=== PATIENT | female | born 1970 | race Caucasian/White ===

== ENCOUNTER 2017-02-28 20:40 | Emergency (ER) | payer OTHER ==
[~2017-02-28] VITALS: Ht 162.6 cm; Wt 90.7 kg
[~2017-02-28 20:40] MED LIST: ABILIFY 5 MG TAB5 MG; AFRIN15 ML NS; ASPIRIN EC325 MG PO; BACTRIM DS TAB1 EACH PO; BACTROBAN NASAL1 GM NS; BENADRYL25 MG PO; BUSPIRONE HCL10 MG PO; CIPROFLOXACIN500 M1 PO; CLARITIN10 MG PO; CLARITIN5 MG/5 ML PO; CLEOCIN HCL300 MG PO; CLONAZEPAM 0.50.5 M1 PO; COLACE100 MG PO; CORTISPORIN OTI10 M2 OTIC; DARVOCET-N 1001 EACH PO; DEPAKOTE ER500 MG PO; DESYREL; EFFEXOR 5050 MG/1 T1 PO; EFFEXOR XR150 MG; EFFEXOR XR150 MG PO; EFFEXOR XR37.5 MG PO; EFFEXOR XR75 MG; EFFEXOR XR75 MG PO; FLAGYL500 MG PO; FLEXERIL PO; FLONASE 0.05%50 MCG NS; GABAPENTIN 100100 MG PO; GEODON20 MG PO; GLUCOPHAGE XR500 MG PO; GLUCOPHAGE1000 MG PO; GLUCOTROL5 MG PO; HEADACHE RELIE1 EAC3 PO; HUMALOG100 UNIT/2; HYDROCODONE-AP1 EAC6 PO; IBUPROFEN 800800 M1 PO; KETOROLAC TROME10 MG PO; KLONOPIN0.5 MG PO; LATUDA20 MG PO; LATUDA60 MG PO; LEVEMIR SUBQ; LISINOPRIL10 MG PO; LORATIDINE 10 M10 M1 PO; MECLIZINE 25 MG25 M1 PO; MIGRAINE MED; MIRALAX17 GM PO; NORCO 5-325 TA1 EACH PO; NOVOLOG100 UNIT/1 SUBQ; ONDANSETRON HCL4 M2 PO; PHENERGAN 25 MG25 M1 PO; REMERON30 MG PO; RESTORIL30 MG PO; SEASONALE1 EACH PO; SEROQUEL 25 MG25 M1 PO; SEROQUEL 50 MG50 MG; SIMVASTATIN40 MG PO; SKELAXIN 800 M800 M1 PO; SYNTHROID25 MCG PO; TORADOL 10 MG T10 MG PO; TRAMADOL 50 MG50 MG PO; ULTRAM 50MG TAB50 MG PO; VISTARIL 25 MG25 M1 PO; ZOCOR40 MG PO; ZOFRAN ODT4 MG PO; ZOFRAN4 MG PO
[2017-02-28 21:59] VITALS: BP 161/100
== END 2017-02-28 22:02 | disposition home or self-care (01) ==
LOC: M.ERS 20:40
DX: K62.89 Other specified diseases of anus and rectum (principal); F31.9 Bipolar disorder, unspecified; G43.909 Migraine, unspecified, not intractable, without status migrainosus; E03.9 Hypothyroidism, unspecified; E78.5 Hyperlipidemia, unspecified; F43.10 Post-traumatic stress disorder, unspecified; E11.9 Type 2 diabetes mellitus without complications; Z88.5 Allergy status to narcotic agent; Z86.14 Personal history of Methicillin resistant Staphylococcus aureus infection; Z88.1 Allergy status to other antibiotic agents; Z88.8 Allergy status to other drugs, medicaments and biological substances

== ENCOUNTER 2017-03-10 21:09 | Emergency (ER) | payer OTHER ==
[~2017-03-10] VITALS: Ht 162.6 cm; Wt 90.7 kg
[2017-03-10] MEDS ORDERED: NEURONTIN600 MG PO (21:17)
[2017-03-10] MEDS ORDERED: TORADOL 10 MG T10 MG PO (21:30)
[2017-03-10] MEDS ORDERED: ZOFRAN ODT4 MG PO (21:30)
[2017-03-10 21:58] VITALS: BP 145/86
== END 2017-03-10 22:02 | disposition home or self-care (01) ==
LOC: M.ERS 21:09
DX: R51 Headache (principal); E11.9 Type 2 diabetes mellitus without complications; F31.9 Bipolar disorder, unspecified; E03.9 Hypothyroidism, unspecified; Z88.5 Allergy status to narcotic agent; Z88.1 Allergy status to other antibiotic agents; Z88.8 Allergy status to other drugs, medicaments and biological substances

== ENCOUNTER 2017-03-21 18:56 | Emergency (ER) | payer OTHER ==
[~2017-03-21] VITALS: Ht 162.6 cm; Wt 90.7 kg
[~2017-03-21 18:56] MED LIST changes: +NEURONTIN600 MG PO
[2017-03-21 20:00] LABS: ABSOLUTE EOSINOPHILS 0.1 thou/uL (0.0-0.7); ABSOLUTE LYMPHOCYTES 1.5 thou/uL (0.8-5.3); ABSOLUTE MONOCYTES 0.4 thou/uL (0.0-1.2); ABSOLUTE NEUTROPHILS 3.2 thou/uL (1.6-8.1); BASOPHILS 0.3 %; HEMATOCRIT 34.9 % (37.0-47.0); HEMOGLOBIN 11.7 gm/dL (12.0-15.0); LYMPHOCYTES 28.9 %; MCH 32.1 pg (26.0-34.0); MCHC 33.6 g/dL (28.0-37.0); MCV 95.6 fL (80.0-100.0); MONOCYTES 6.9 %; MPV 9.7 fl. (7.2-11.1); NUCLEATED RBCS 0 /100WBC; PLATELET COUNT* 204 thou/uL (150-400); POLYS 61.9 %; RBC 3.66 mil/uL (4.20-5.00); RDW-CV 12.8 % (10.5-14.5); WBC 5.2 thou/uL (4.0-11.0)
[2017-03-21 20:15] LABS: ANION GAP 6 mmol/L (7-16); BUN 11 mg/dL (7-18); CALCIUM 8.4 mg/dL (8.5-10.1); CHLORIDE 102 mmol/L (98-107); CO2 30 mmol/L (21-32); CREATININE 0.8 mg/dL (0.6-1.3); GLUCOSE 266 mg/dL (70-99); POTASSIUM 3.7 mmol/L (3.5-5.1); SODIUM 138 mmol/L (136-145)
[2017-03-21 20:22] LABS: ALBUMIN 3.2 g/dL (3.4-5.0); ALKALINE PHOSPHATASE 72 U/L (46-116); SGOT 16 U/L (15-37); SGPT 22 U/L (30-65); TOTAL BILIRUBIN 0.5 mg/dL (<0.1-1.0); TOTAL PROTEIN 6.4 g/dL (6.4-8.2); TROPONIN-I LEVEL <0.06 ng/mL (<0.06)
[2017-03-21 22:57] VITALS: BP 120/65
--- NOTE | 2017-03-22 12:41 | EKG ---
[place] [address] ELECTROCARDIOGRAM REPORT Name: KWANANTONIETTAALEXSANDRA SANZ Room: [facility]#: [id number] Admission: 03/21/17 Attend Phys: Discharge: 03/21/17 Date of : 66 Report #: [id number] THIS REPORT FOR: //name// [facility] ED Test Date: 2017-03-21 Test Time: 19:26:32 Pat Name: ANTONIETTA KWAN Department: Room: Gender: F Angiographer: CYNDI Khan : 1970 Requested By: Daily Rosario Order Number: [id number] MD: Kapil Gamble Measurements Intervals [place] Rate: 77 P: 16 LA: 140 QRS: -8 QRSD: 85 T: 31 QT: 409 QTc: 463 Interpretive Statements Sinus rhythm Probable anterior infarct, old Compared to ECG 07/28/2015 19:51:17 Myocardial infarct finding now present Electronically Signed On 03-22-2017 12:41:35 [employer] by Kapil Gamble [email or web address] <ELECTRONICALLY SIGNED> By: Magi Gamble MD, [facility] 03/22/17 1241 25 25 Magi Gamble MD, [facility] /EPI
== END 2017-03-21 22:58 | disposition home or self-care (01) ==
LOC: M.ERS 18:56
PROVIDERS: Physician Assistant
DX: R07.89 Other chest pain (principal); E11.9 Type 2 diabetes mellitus without complications; F31.9 Bipolar disorder, unspecified; G43.909 Migraine, unspecified, not intractable, without status migrainosus; E03.9 Hypothyroidism, unspecified; E78.5 Hyperlipidemia, unspecified; F43.10 Post-traumatic stress disorder, unspecified; Z87.442 Personal history of urinary calculi; Z90.89 Acquired absence of other organs; Z86.14 Personal history of Methicillin resistant Staphylococcus aureus infection; Z79.4 Long term (current) use of insulin; Z88.5 Allergy status to narcotic agent; Z88.1 Allergy status to other antibiotic agents; Z88.8 Allergy status to other drugs, medicaments and biological substances

== ENCOUNTER 2017-07-16 01:50 | Emergency (ER) | payer OTHER ==
[~2017-07-16] VITALS: Ht 162.6 cm; Wt 90.7 kg
[2017-07-16 02:11] LABS: URINE BLOOD 1+ (Negative); URINE CLARITY CLEAR; URINE COLOR YELLOW; URINE GLUCOSE-RANDOM 3+ (Negative); URINE LEUKOCYTES-REFLEX NEGATIVE (Negative); URINE NITRITE-REFLEX NEGATIVE (Negative); URINE PROTEIN NEGATIVE (Negative); URINE UROBILINOGEN 0.2 E.U./dl (0.2-1.0)
[2017-07-16 02:16] LABS: ABSOLUTE BASOPHILS 0.1 thou/uL (0.0-0.2); ABSOLUTE EOSINOPHILS 0.1 thou/uL (0.0-0.7); ABSOLUTE LYMPHOCYTES 2.3 thou/uL (0.8-5.3); ABSOLUTE MONOCYTES 0.3 thou/uL (0.0-1.2); BASOPHILS 1.4 %; HEMATOCRIT 42.1 % (37.0-47.0); HEMOGLOBIN 13.9 gm/dL (12.0-15.0); LYMPHOCYTES 29.8 %; MCV 96.9 fL (80.0-100.0); MONOCYTES 4.2 %; MPV 10.8 fl. (7.2-11.1); NUCLEATED RBCS 0 /100WBC; PLATELET COUNT* 244 thou/uL (150-400); POLYS 63.6 %; RBC 4.34 mil/uL (4.20-5.00); RDW-CV 13.4 % (10.5-14.5); WBC 7.9 thou/uL (4.0-11.0)
[2017-07-16 02:20] LABS: ICTOTEST (BILI CONFIRMATORY) Negative (Negative); URINE BILIRUBIN 2+ (Negative); URINE KETONES 3+ (Negative)
[2017-07-16 02:22] LABS: CASTS None Seen /LPF (None Seen); CRYSTALS None Seen /LPF (None Seen); MUCUS None Seen strn/LPF (None Seen); SQUAMOUS >10 Many /LPF (0-3)
[2017-07-16 02:23] LABS: URINE RBC 0-2 Rare /HPF (0-2); URINE WBC-REFLEX 0-5 Rare /HPF (0-5)
[2017-07-16 02:23] LABS: CALCIUM 8.7 mg/dL (8.5-10.1); CREATININE 1.1 mg/dL (0.6-1.3); POTASSIUM 3.4 mmol/L (3.5-5.1)
[2017-07-16 02:33] LABS: ALBUMIN 3.3 g/dL (3.4-5.0); TOTAL BILIRUBIN 0.6 mg/dL (<0.1-1.0); TOTAL PROTEIN 7.3 g/dL (6.4-8.2)
[2017-07-16] MEDS ORDERED: PERCOCET 5-3251 EACH PO (04:35)
[2017-07-16 04:49] VITALS: BP 101/75
== END 2017-07-16 04:54 | disposition home or self-care (01) ==
LOC: M.ERS 01:50
PROVIDERS: Emergency Medicine
DX: N20.0 Calculus of kidney (principal); E11.9 Type 2 diabetes mellitus without complications; F31.9 Bipolar disorder, unspecified; G43.909 Migraine, unspecified, not intractable, without status migrainosus; E78.5 Hyperlipidemia, unspecified; E03.9 Hypothyroidism, unspecified; Z88.5 Allergy status to narcotic agent; Z88.1 Allergy status to other antibiotic agents; Z88.8 Allergy status to other drugs, medicaments and biological substances; Z86.14 Personal history of Methicillin resistant Staphylococcus aureus infection; Z79.4 Long term (current) use of insulin

== ENCOUNTER 2017-07-22 08:52 | Emergency (ER) | payer OTHER ==
[~2017-07-22] VITALS: Ht 162.6 cm; Wt 90.7 kg
[~2017-07-22 08:52] MED LIST changes: +PERCOCET 5-3251 EACH PO
[2017-07-22 09:04] LABS: URINE BILIRUBIN NEGATIVE (Negative); URINE BLOOD 3+ (Negative); URINE CLARITY SL CLOUDY; URINE COLOR YELLOW; URINE GLUCOSE-RANDOM 3+ (Negative); URINE KETONES TRACE (Negative); URINE LEUKOCYTES-REFLEX 1+ (Negative); URINE PROTEIN 2+ (Negative); URINE SPECIFIC GRAVITY 1.015 (1.005-1.030); URINE UROBILINOGEN 0.2 E.U./dl (0.2-1.0)
[2017-07-22 09:05] LABS: URINE NITRITE-REFLEX POSITIVE (Negative)
[2017-07-22 09:13] LABS: SQUAMOUS 4-10 Moderate /LPF (0-3); URINE RBC >20 Many /HPF (0-2); WBC CLUMPS Moderate (None Seen)
[2017-07-22 09:16] LABS: AMORPHOUS PHOSPHATES Many /LPF (None Seen); CASTS None Seen /LPF (None Seen); MUCUS None Seen strn/LPF (None Seen)
[2017-07-22] MEDS ORDERED: CIPROFLOXACIN500 M1 PO (09:31)
[2017-07-22] MEDS ORDERED: AZITHROMYCIN500 MG PO (09:31)
[2017-07-22] MEDS ORDERED: PYRIDIUM200 MG PO (09:31)
[2017-07-22 09:46] VITALS: BP 120/79
== END 2017-07-22 09:48 | disposition home or self-care (01) ==
LOC: M.ERS 08:52
PROVIDERS: Emergency Medicine
DX: N39.0 Urinary tract infection, site not specified (principal); A64 Unspecified sexually transmitted disease; E11.9 Type 2 diabetes mellitus without complications; E78.5 Hyperlipidemia, unspecified; F31.9 Bipolar disorder, unspecified; G43.909 Migraine, unspecified, not intractable, without status migrainosus; Z88.5 Allergy status to narcotic agent; Z88.1 Allergy status to other antibiotic agents; Z88.8 Allergy status to other drugs, medicaments and biological substances; Z87.442 Personal history of urinary calculi; Z86.14 Personal history of Methicillin resistant Staphylococcus aureus infection; Z79.4 Long term (current) use of insulin

== ENCOUNTER 2021-02-18 13:57 | Emergency (ER) | payer OTHER ==
[~2021-02-18] VITALS: Ht 162.6 cm; Wt 88.0 kg
[~2021-02-18 13:57] MED LIST changes: +AZITHROMYCIN500 MG PO; +PYRIDIUM200 MG PO
[2021-02-18 14:04] VITALS: BP 137/92
[2021-02-18] MEDS ORDERED: FLEXERIL PO (16:38)
== END 2021-02-18 16:44 | disposition home or self-care (01) ==
LOC: M.ERS 13:57
DX: S16.1XXA Strain of muscle, fascia and tendon at neck level, initial encounter (principal); S93.601A Unspecified sprain of right foot, initial encounter; S90.32XA Contusion of left foot, initial encounter; M54.41 Lumbago with sciatica, right side; M19.071 Primary osteoarthritis, right ankle and foot; M25.571 Pain in right ankle and joints of right foot; M25.572 Pain in left ankle and joints of left foot; M25.551 Pain in right hip; E11.9 Type 2 diabetes mellitus without complications; F31.9 Bipolar disorder, unspecified; G43.909 Migraine, unspecified, not intractable, without status migrainosus; E03.9 Hypothyroidism, unspecified; E78.5 Hyperlipidemia, unspecified; Z86.14 Personal history of Methicillin resistant Staphylococcus aureus infection; Z90.89 Acquired absence of other organs; Z87.442 Personal history of urinary calculi; Z79.4 Long term (current) use of insulin; Z79.899 Other long term (current) drug therapy; Z88.5 Allergy status to narcotic agent; Z88.1 Allergy status to other antibiotic agents; Z88.8 Allergy status to other drugs, medicaments and biological substances; V89.2XXA Person injured in unspecified motor-vehicle accident, traffic, initial encounter; Y93.I9 Activity, other involving external motion; Y92.488 Other paved roadways as the place of occurrence of the external cause; Y99.8 Other external cause status